=== PATIENT | male | born 1970 | race Caucasian/White ===

== ENCOUNTER 2023-12-15 08:46 | Emergency (ER) | payer BC, SELFPAY ==
[2023-12-15 08:50] VITALS: BP 146/91; PULSE 77; RESP 20; TEMP 36.3; O2SAT 100
[2023-12-15 08:56] VITALS: BP 146/91; PULSE 77; RESP 20; TEMP 36.3; O2SAT 100
--- NOTE | 2023-12-15 08:57 | ED.URI ---
HPI - URI/Sore Throat General Chief Complaint: Upper Respiratory Infection Stated Complaint: tooth infection Time Seen by Provider: 12/15/23 08:59 Source: patient, RN notes reviewed and old records reviewed Mode of arrival: ambulatory Limitations: no limitations History of Present Illness HPI Narrative: 53 year old male presents to express care with complaints of some redness, tenderness,minimal swelling to the right side of his cheek which started yesterday with some pain radiating to his right ear and jaw. Patient reports that he has some swelling of his glands in his right neck and today it seems the left check area feels different but no redness or swelling noted. Patient reports that he does have history of past facial cellulitis. He states some cold symptoms last week. MD elicited complaint: other (right cheek redness swelling and warmth) Pertinent past history: other (facial cellulitis) Onset (ago): day(s) (started yesterday) Consistency: constant Pain scale (0-10): 2 Able to tolerate fluids by mouth: Yes Treatments prior to arrival: none Related Data Allergies Allergy/AdvReac Type Severity Reaction Status Date / Time No Known Allergies Allergy Verified 12/15/23 08:55 Review of Systems Review of Systems: CONSTITUTIONAL: Denies fever, chills, or sweats. CARDIOVASCULAR: Denies chest pain, palpitations, or edema. RESPIRATORY: Denies cough or dyspnea. GASTROINTESTINAL: Denies abdominal pain, nausea, vomiting SKIN: Reports redness and swelling, tenderness to the right side of face at cheek area with some tenderness to glands in his neck with some radiating pain to right ear and jaw. MUSCULOSKELETAL: Denies myalgia. NEUROLOGIC: Denies headache, numbness All systems reviewed & are unremarkable except as noted in HPI and below PMFSH Past Medical History Medical History Allergic rhinitis Facial cellulitis IBS (irritable bowel syndrome) Normal colonoscopy (~2005) Family History Family History Father Melanoma Glaucoma Grandparent Malignant neoplasm of prostate Other Diabetes mellitus Social History Social History Smoking status: Never smoker Alcohol intake: current Alcohol use details: 2-3 DRINKS/DAY Substance use: never Comments At time of signature, agree with nursing past medical, surgical, social and family history. There is no relevant family history pertinent to the presenting complaint Exam Narrative: GENERAL: Well-appearing, well-nourished, and in no acute distress. HEAD: Normocephalic, atraumatic. EYES: PERRLA and EOMI. ENT: Nares clear, no rhinorrhea or epistaxis. Mucous membranes moist. NECK: Supple.no lymphadenopathy noted CHEST: Clear to auscultation. No respiratory distress.SAO2 100% on room air HEART: Regular rate and rhythm. No murmur heard. Normal peripheral pulses. ABDOMEN: Soft, nontender, nondistended, normal active bowel sounds. EXTREMITIES: Normal range of motion. No edema. SKIN: Warm, dry. Erythema, induration, tenderness, warmth to right side of face with no vesicles or fluctuation of tissue, some radiating pain to right ear and jaw. NEURO: No focal deficits. Alert and oriented x3. Course Course Emergency Course: Patient is aware of diagnosis, understands and agrees to treatment plan. Anticipatory guidance given. Patient agrees to follow-up as directed and is aware of reasons to seek care at the emergency department. Portions of this record may have been created with voice recognition software Level of Care: Express Care Visit Vital Signs Vital signs: Vital Signs Temperature 36.3 C L 12/15/23 08:50 Pulse Rate 77 12/15/23 08:50 Respiratory Rate 20 12/15/23 08:50 Blood Pressure 146/91 H 12/15/23 08:50 Pulse Oximetry 100 12/15/23 08:50 Oxygen Delivery Room Air 12/15/23 08:50
== END 2023-12-15 09:18 | disposition home or self-care (01) ==
PROVIDERS: Emergency Provider Registered Nurse; PCP Family Medicine
DX: L03.211 Cellulitis of face (principal)
CPT/HCPCS: 99213; G0463